=== PATIENT | male | born 1955 | race Caucasian/White ===

== ENCOUNTER 2018-08-31 09:37 | Emergency (ER) | payer OTHER ==
[2018-08-31] MEDS ORDERED: IPRATROPIUM/ALBUTEROL 3 ML DEYVIAL IH ONE (10:02)
[2018-08-31] MEDS ORDERED: methylPREDNISolone SOD SUCC 125 MG/2 ML VIAL IVP ONE (10:02)
[2018-08-31] MEDS ORDERED: ALBUTEROL 3 ML DEYVIAL IH ONE ×2 (10:03→11:39)
[2018-08-31 10:09] LABS: PLATELET COUNT 298 10^3/uL (150-400)
--- NOTE | 2018-08-31 10:10 | EDPHY ---
H & P Stated Complaint: fever cough congestion x 1 month hypoxic in triage Time Seen by Provider: 08/31/18 09:48 HPI/ROS: CHIEF COMPLAINT: Cough, shortness of breath HISTORY OF PRESENT ILLNESS: 63-year-old male presents with cough and shortness of breath. Onset of URI symptoms 1 month ago, gradually increasing cough and shortness of breath since then. Cough is productive of yellowish phlegm. Now feels short of breath at rest. Unable to sleep last night because of shortness of breath. No fever or chills. No known history of COPD. REVIEW OF SYSTEMS: complete 10 point ROS reviewed and is negative except for the noted elements in the HPI - Personal History Current Tetanus Diphtheria and Acellular Pertussis (TDAP): Yes - Medical/Surgical History Hx Asthma: No Hx Chronic Respiratory Disease: No Hx Diabetes: No Hx Cardiac Disease: No Hx Renal Disease: No Hx Cirrhosis: No Hx Alcoholism: No Hx HIV/AIDS: No Hx Splenectomy or Spleen Trauma: No Other PMH: htn - Social History Smoking Status: Current every day smoker - Physical Exam Exam: General Appearance: Alert, pleasant, speaks in full sentences, on oxygen 5 L by nasal cannula Eyes: Pupils equal and round, no conjunctival pallor or injection ENT, Mouth: Mucous membranes moist Neck: Normal inspection Respiratory: Tachypnea, diffuse expiratory wheezing Cardiovascular: Regular tachycardia Gastrointestinal: Abdomen is soft and nontender Neurological: A&O, nonfocal exam Skin: Warm and dry Extremities: Normal inspection Psychiatric: Mood and affect normal Constitutional: Initial Vital Signs Temperature (C) 37.6 C 08/31/18 09:42 Heart Rate 116 H 08/31/18 09:42 Respiratory Rate 20 08/31/18 09:42 Blood Pressure 113/86 H 08/31/18 09:42 O2 Sat (%) 70 L 08/31/18 09:42 O2 Delivery Mode Room Air O2 (L/minute) 6 Allergies/Adverse Reactions: No Known Allergies Allergy (Unverified 08/31/18 09:41) Home Medications: Medication Instructions Recorded Albuterol [Proventil Inhaler HFA 2 puffs IH QID PRN #1 mdi 08/31/18 (*)] Hydrochlorothiazide 08/31/18 Lovastatin 08/31/18 Potassium Chloride 08/31/18 levOFLOXACIN [levAQUIN (*)] 750 mg PO DAILY #10 tab 08/31/18 predniSONE 1 tab PO DAILY #15 tab 08/31/18 Medical Decision Making - Diagnostics Imaging Results: Imaging Impressions Chest X-Ray 08/31/18 09:52 Impression: Probable bilateral pneumonia, more predominant in the right middle lobe with underlying bronchitis. Imaging: I viewed and interpreted images myself ED Course/Re-evaluation: This patient presents with prolonged cough and shortness of breath. Physical exam reveals severe hypoxia and diffuse bronchospasm. The patient was placed on oxygen by nasal cannula and oxygen saturation is 95% on 5 L. A DuoNeb and Solu-Medrol 125 mg IV given, followed by albuterol neb. Does not meet SIRS criteria. Lactate normal. Admission discussed with the patient, he refuses. 11am: Chest x-ray reveals bilateral pneumonia. Results discussed with the patient. Chest-persistent expiratory wheezing. O2 sat 85% RA. Rocephin and Zithromax IV given. Continues to refuse admission. He is a competent decision maker and clearly understands the risks and benefits of this decision, including . Continues to refuse admission. Signed out AMA. Differential Diagnosis: Differential diagnosis includes though is not limited to empyema, pulmonary edema, pulmonary embolism, pneumothorax. - Data Points Laboratory Results: Laboratory Results 08/31/18 09:55 08/31/18 09:55 08/31/18 08/31/18 08/31/18 09:55 09:55 09:55 WBC 9.65 10^3/uL H 10^3/uL (3.80-9.50) RBC 5.02 10^6/uL 10^6/uL (4.40-6.38) Hgb 14.8 g/dL g/dL (13.7-17.5) Hct 43.3 % % (40.0-51.0) MCV 86.3 fL fL (81.5-99.8) MCH 29.5 pg pg (27.9-34.1) MCHC 34.2 g/dL g/dL (32.4-36.7) RDW 14.1 % % (11.5-15.2) Plt Count 298 10^3/uL 10^3/uL (150-400) MPV 11.1 fL fL (8.7-11.7) Neut % (Auto) Not Reported Lymph % (Auto) Not Reported Mineral % (Auto) Not Reported Eos % (Auto) Not Reported Baso % (Auto) Not Reported Nucleat RBC Rel Count Not Reported Absolute Neuts (auto) Not Reported Absolute Lymphs (auto) Not Reported Absolute Monos (auto) Not Reported Absolute Eos (auto) Not Reported Absolute Basos (auto) Not Reported Absolute Nucleated RBC Not Reported Immature Gran % Not Reported Seg Neutrophils % 75.5 % % Band Neutrophils % 8.2 % % Lymphocytes % 6.1 % % Monocytes % 9.2 % % Eosinophils % 0.0 % % Basophils % 1.0 % % Metamyelocytes % 0.0 % % Myelocytes % 0.0 % % Promyelocytes % 0.0 % % Blast Cells % 0.0 % % Immature Gran # Not Reported Absolute Seg Neuts 7.29 10^3/uL H 10^3/uL (1.70-6.50) Absolute Band Neuts 0.79 10^3/uL H 10^3/uL (0.00-0.70) Absolute Lymphocytes 0.59 10^3/uL L 10^3/uL (1.00-3.00) Absolute Monocytes 0.89 10^3/uL H 10^3/uL (0.30-0.80) Absolute Eosinophils 0.00 10^3/uL L 10^3/uL (0.03-0.40) Absolute Basophils 0.10 10^3/uL 10^3/uL (0.02-0.10) Absolute Metamyelocyte 0.00 10^3/mL 10^3/mL (0.00-0.00) Absolute Myelocytes 0.00 10^3/mL 10^3/mL (0.00-0.00) Absolute Promyelocytes 0.00 10^3/uL 10^3/uL (0.00-0.00) Absolute Plasma Cells 0.00 10^3/uL 10^3/uL (0.00-0.00) Nucleated RBCs 0 /100 WBC /100 WBC (0-0) Absolute Blast Cells 0.00 10^3/uL 10^3/uL (0.00-0.00) Plasma Cells % 0.0 % % Platelet Estimate ADEQUATE (ADEQ) Polychromasia 2+ H VBG Lactic Acid 1.8 mmol/L mmol/L (0.7-2.1) Sodium 134 mEq/L L mEq/L (135-145) Potassium 3.2 mEq/L L mEq/L (3.5-5.2) Chloride 94 mEq/L L mEq/L (97-110) Carbon Dioxide 25 mEq/l mEq/l (22-31) Anion Gap 15 mEq/L H mEq/L (6-14) BUN 18 mg/dL mg/dL (7-23) Creatinine 1.0 mg/dL mg/dL (0.7-1.3) Estimated GFR > 60 Glucose 147 mg/dL H mg/dL (70-100) Calcium 9.2 mg/dL mg/dL (8.5-10.4) Medications Given: Discontinued Medications Albuterol (Proventil Neb) 3 ml IH EDNOW ONE Stop: 08/31/18 10:04 Last Admin: 08/31/18 10:06 Dose: 3 ml Albuterol (Proventil Neb) 3 ml IH EDNOW ONE Stop: 08/31/18 11:40 Last Admin: 08/31/18 11:44 Dose: 3 ml Albuterol/Ipratropium (Duoneb) 3 ml IH EDNOW ONE Stop: 08/31/18 10:03 Last Admin: 08/31/18 10:06 Dose: 3 ml Azithromycin 500 mg/ Sodium (Chloride) 255 mls @ 255 mls/hr IV EDNOW ONE PRN Reason: Protocol Stop: 08/31/18 11:58 Last Admin: 08/31/18 11:33 Dose: 255 mls Ceftriaxone Sodium/Dextrose (Rocephin 1 Gm (Premix)) 50 mls @ 100 mls/hr IV EDNOW ONE PRN Reason: Protocol Stop: 08/31/18 11:28 Last Admin: 08/31/18 11:12 Dose: 50 mls Methylprednisolone Sodium Succinate (Solu-Medrol) 125 mg IVP EDNOW ONE Stop: 08/31/18 10:03 Last Admin: 08/31/18 10:09 Dose: 125 mg Departure - Departure Disposition: Against Medical Advice Clinical Impression: Pneumonia Qualifiers: Pneumonia type: due to unspecified organism Laterality: bilateral Lung location : unspecified part of lung Qualified Code(s): J18.9 - Pneumonia, unspecified organism Condition: Serious Instructions: Bacterial Pneumonia (ED) Additional Instructions: I have advised you to be admitted for pneumonia and critically low oxygen levels. Please return for admission at any time. Referrals: Nancy Gu MD [Medical Doctor] - As per Instructions Prescriptions: Albuterol [Proventil Inhaler HFA (*)] 2 puffs IH QID PRN #1 mdi PRN Reason: Short Of Breath/Dyspnea levOFLOXACIN [levAQUIN (*)] 750 mg PO DAILY #10 tab predniSONE 1 tab PO DAILY #15 tab
[2018-08-31] MEDS ORDERED: AZITHROMYCIN IV 500 MG in NS 250 ML IV ONE (10:59)
[2018-08-31 13:05] VITALS: BP 119/84
== END 2018-08-31 13:06 | disposition left against medical advice (07) ==
DX: J18.9 Pneumonia, unspecified organism (principal)
CPT/HCPCS: 96365; J0456; J0696; J2930; J7613